=== PATIENT | female | born 1985 | race Caucasian/White ===

== ENCOUNTER 2022-12-30 11:11 | Outpatient (CLI) | payer OTHER | END 2022-12-30 11:12 | disposition home or self-care (01) | LOC: CSHRAD 11:11 | PROVIDERS: ATTEND Family Medicine | DX: R05.9 Cough, unspecified (principal); M54.6 Pain in thoracic spine | CPT/HCPCS: 71046; 72070 ==

== ENCOUNTER 2024-04-27 10:40 | Outpatient (CLI) | payer BC | END 2024-04-27 10:41 | disposition home or self-care (01) | LOC: CSHRAD 10:40 | PROVIDERS: ATTEND Family Medicine | DX: R05.9 Cough, unspecified (principal) | CPT/HCPCS: 71046 ==